=== PATIENT | male | born 1960 | race Caucasian/White ===

== ENCOUNTER 2017-02-25 14:25 | Emergency (ER) | payer OTHER ==
--- NOTE | 2017-02-25 14:58 | CPEKG ---
Heart Rate: 74 RR Interval: 811 P-R Interval: 144 QRSD Interval: 96 QT Interval: 396 QTC Interval: 440 P Heath: 63 QRS Heath: 16 T Wave Heath: 51 EKG Severity - NORMAL ECG - EKG Impression: SINUS RHYTHM Electronically Signed By: Nic Tovar 25-Feb-2017 22:59:16
[2017-02-25] MEDS ORDERED: NS 500 ML IV ONE (15:10)
[2017-02-25] MEDS ORDERED: FAMOTIDINE 20 MG/NACL 50 ML IV ONE (15:13)
[2017-02-25] MEDS ORDERED: ONDANSETRON 4 MG/2 ML VIAL IVP ONE (15:13)
--- NOTE | 2017-02-25 15:18 | EDPHY ---
H & P Time Seen by Provider: 02/25/17 15:00 HPI/ROS: HPI Stomach upset. 56-year-old male by private vehicle with his . This patient presents to the emergency department from the office of his primary care physician. This is Dr. Banerjee. He reports 2-3 weeks of what he describes as indigestion in abdominal discomfort with gas including burping and flatulence. He describes having vague abdominal discomfort, mostly in the mid and upper abdomen. Described as crampy and uncomfortable. He describes the discomfort as being under both ribs and sometimes radiating to the mid back. He reports that it has been on and off in intensity for the last 2-3 weeks but he has been feeling it constantly at some level for that time. He denies any chest pain. No shortness of breath. No urinary complaints. No fever. He reports this morning he had 1 episode of nonbilious and nonbloody vomiting. He reports his last meal was at 12 noon this stayed down. No diarrhea. No bloody or melenic stool. Last bowel movement was this morning. He denies any new supplements for medications. No change in diet. ROS: Constitutional: No fever, no chills. No weakness. Eyes: No discharge. No changes in vision. ENT: No sore throat. No nasal congestion or rhinorrhea. Respiratory: No cough. No shortness of breath. Cardiac: No chest pain, no palpitations. Gastrointestinal: As above. Genitourinary: No hematuria. No dysuria or increased frequency with urination. Musculoskeletal: No back pain. No neck pain. No myalgias or arthralgias. Skin: No rashes. Neurological: No headache. No focal weakness or altered sensation. Past medical history: He denies any significant past medical history. He is on no prescription medications. Social history: Chews tobacco. Drinks 2-3 alcoholic beverages per night. Here with his . Physical Exam: General Appearance: Alert, no distress. Moderately obese. This patient is responding to questions appropriately and in full sentences. This patient appears well-hydrated and well-nourished. Eyes: Pupils equal and round no pallor or injection. No lid edema, erythema or injection. Respiratory: There are no retractions, lungs are clear to auscultation with good air movement bilaterally. Cardiovascular: Regular rate and rhythm. No murmur. Gastrointestinal: Abdomen is soft with vague and mild tenderness on palpation involving the right upper quadrant, left lower quadrant and middle and right lower abdomen to a lesser extent, no masses, bowel sounds normal. No focal tenderness at McBurney's point. No Dooley sign. Neurological: Motor sensory function is grossly intact. Cranial nerves are normal. Gait is normal. Skin: Warm and dry, no rashes. Musculoskeletal: Neck is supple and nontender. Extremities are symmetrical. All joints range without pain or impingement. Psychiatric: No agitation. No depression. Database: EKG: EKG time is 2:56 p.m.; EKG shows a narrow complex normal sinus rhythm with a ventricular rate of 74. The DE, QRS, QT intervals are within normal limits. There are no ST-T wave changes indicative of ischemic or injury pattern. No evidence of right heart strain. Interpreted by me. Imaging: Right upper quadrant abdominal ultrasound: 5.5 cm renal mass on the right side. No associated hydronephrosis. Borderline enlarged liver. Gallbladder unremarkable. Common bile duct 5-6 mm. Otherwise normal. Results were discussed with staff radiologist Dr. José Manuel Vieira. CT of abdomen and pelvis with IV contrast: Significant for a likely renal cell carcinoma involving the right kidney 5.5 cm in diameter. It does not appear to invade the collection system or the vasculature of the kidney. It appears isolated. Results were discussed with staff radiologist Dr. Watson Adams. Procedures: Emergency department course: Vital signs reviewed and are normal. IV placed. He was placed on a monitor. EKG performed. He was started on IV normal saline with 500 cc to be given over the next hour. He was given 4 mg of IV Zofran and 20 mg of IV Pepcid. 4:40 p.m., patient re-evaluated. Resting comfortably at this time. Discussed results of ultrasound and identification of renal mass. Radiologist, Dr. Vieira, recommend CT of abdomen and pelvis with IV contrast as well as without contrast to further evaluate this mass. This was discussed with the patient. He consents to CT imaging. Will be sent shortly for the studies. 7:30 p.m., spoke with on-call oncologist Dr. Kelly. Case discussed in detail. Dr. Kelly will see this patient in his clinic tomorrow for further evaluation and management. 7:40 p.m., patient re-evaluated. Resting comfortably at this time. Denies any significant pain. Results of CT scan and diagnosis of likely renal cell carcinoma discussed with him and his . I discussed my conversation with Dr. Kelly. I discussed follow-up with Dr. Kelly tomorrow in Dr. Kelly clinic. As for his abdominal discomfort, flatulence, belching and acid reflux will put him on a proton pump inhibitor. I will also prescribe him a limited number of Vicodin with stool softeners for the next 2-3 days. The patient understands his follow-up. Return to emergency department precautions were thoroughly reviewed with him. All of his questions were answered. He was discharged in good condition. Differential Diagnosis: The differential diagnosis on this patient includes but is not limited to dyspepsia, food-borne illness, renal carcinoma. Acute coronary syndrome, cholecystitis, biliary colic, pancreatitis, cholangitis, aortic dissection, unlikely. This represents a partial list of diagnoses considered. These considerations are based on history, physical exam, past history, reassessment and diagnostic testing. Smoking Status: Current some day smoker Constitutional: Initial Vital Signs Temperature (C) 36.4 C 02/25/17 14:39 Heart Rate 78 02/25/17 14:39 Respiratory Rate 16 02/25/17 14:39 Blood Pressure 135/81 H 02/25/17 14:39 O2 Sat (%) 98 02/25/17 14:39 O2 Delivery Mode Room Air Allergies/Adverse Reactions: codeine Allergy (Verified 02/25/17 14:38) Home Medications: Medication Instructions Recorded Docusate Sodium [Colace 100 MG (*)] 100 mg PO TID #20 cap 02/25/17 Ondansetron Odt [Zofran Odt 4 mg 4 mg PO Q4PRN PRN #10 tab 02/25/17 (*)] Pantoprazole Sodium [Protonix] 40 mg PO DAILY #30 tab 02/25/17 Medical Decision Making - Data Points Laboratory Results: Laboratory Results 02/25/17 15:03 02/25/17 15:03 Medications Given: Discontinued Medications Hydrocodone Bitart/Acetaminophen ([place] 5/325mg Prepack#6) 1 btl TAKEHOME EDNOW ONE Stop: 02/25/17 19:44 Last Admin: 02/25/17 20:02 Dose: 1 btl Sodium Chloride (Ns) 500 mls @ 1,000 mls/hr IV EDNOW ONE PRN Reason: Protocol Stop: 02/25/17 15:39 Last Admin: 02/25/17 15:10 Dose: 500 mls Famotidine/Sodium Chloride (Pepcid 20 Mg (Premix)) 50 mls @ 200 mls/hr IV EDNOW ONE Stop: 02/25/17 15:27 Last Admin: 02/25/17 15:35 Dose: 50 mls Ondansetron HCl (Zofran) 4 mg IVP EDNOW ONE Stop: 02/25/17 15:14 Last Admin: 02/25/17 15:35 Dose: 4 mg Ondansetron HCl (Zofran Odt 4 Mg Prepack#2) 1 btl TAKEHOME EDNOW ONE Stop: 02/25/17 19:44 Last Admin: 02/25/17 20:02 Dose: 1 btl Departure - Departure Disposition: Home, Routine, Self-Care Clinical Impression: Dyspepsia, Renal cell carcinoma Condition: Good Instructions: Hydrocodone/Acetaminophen (By mouth), Ondansetron (By mouth), Indigestion (ED) Additional Instructions: Read and follow provided instructions. Follow-up with Dr. Kyle Kelly, oncologist, as discussed tomorrow in his clinic for further evaluation and ongoing management. He has your phone number and will call him tomorrow morning. If you do not hear from him tomorrow morning please call him for appointment time. He has your information and date. He will have access to all of our records here. Take medication as prescribed for indigestion. Return to the emergency department for worsening symptoms, worsening abdominal pain, vomiting, fever or other serious concerns. Referrals: Levi Banerjee DO [Primary Care Provider] - As per Instructions Flor Kelly MD [Medical Doctor] - As per Instructions Prescriptions: Docusate Sodium [Colace 100 MG (*)] 100 mg PO TID #20 cap Ondansetron Odt [Zofran Odt 4 mg (*)] 4 mg PO Q4PRN PRN #10 tab PRN Reason: For Nausea & Vomiting Pantoprazole Sodium [Protonix] 40 mg PO DAILY #30 tab
[2017-02-25 15:19] LABS: % IMMATURE GRANULYOCYTES 0.4 % (0.0-1.1); ABSOLUTE IMMATURE GRANULOCYTES 0.04 10^3/uL (0.00-0.10); ADD DIFF? NO; ADD MORPH? NO; ADD SCAN? NO; ATYPICAL LYMPHOCYTE FLAG 0 (0-99); FRAGMENT RBC FLAG 0 (0-99); HEMATOCRIT 47.9 % (40.0-51.0); HEMOGLOBIN 16.1 g/dL (13.7-17.5); LEFT SHIFT FLG 0 (0-99); LIPEMIA HEMOLYSIS FLAG 80 (0-99); MEAN CELL HEMOGLOBIN 30.3 pg (27.9-34.1); MEAN CELL HEMOGLOBIN CONCENTR. 33.6 g/dL (32.4-36.7); MEAN PLATELET VOLUME 10.7 fL (8.7-11.7); PLATELET CLUMPS FLAG 0 (0-99); PLATELET COUNT 227 10^3/uL (150-400); RED BLOOD CELL COUNT 5.32 10^6/uL (4.40-6.38); RED CELL DISTRIBUTION WIDTH 15.3 % (11.5-15.2)
[2017-02-25 15:27] LABS: INR 0.97 (0.83-1.16); PROTIME(PATIENT) 12.8 SEC (12.0-15.0)
[2017-02-25 15:28] LABS: APTT 24.6 SEC (23.0-38.0)
[2017-02-25 15:40] LABS: ALANINE AMINOTRANSFERASE 47 IU/L (21-72); ALBUMIN 4.2 g/dL (3.5-5.0); ALKALINE PHOSPHATASE 79 IU/L (38-126); ANION GAP 14 mEq/L (8-16); ASPARTATE AMINOTRANSFERASE 33 IU/L (17-59); BILIRUBIN,TOTAL 0.5 mg/dL (0.1-1.4); BILIRUBIN-CONJUGATED 0.4 mg/dL (0.0-0.5); BILIRUBIN-UNCONJUGATED 0.1 mg/dL (0.0-1.1); CALCIUM 10.1 mg/dL (8.5-10.4); CARBON DIOXIDE 24 mEq/l (22-31); CHLORIDE 104 mEq/L (97-110); CREATININE 0.9 mg/dL (0.7-1.3); GLOMERULAR FILTRATION RATE > 60; GLUCOSE 132 mg/dL (70-100); POTASSIUM 3.8 mEq/L (3.5-5.2); SODIUM 142 mEq/L (134-144); TOTAL PROTEIN 7.1 g/dL (6.3-8.2)
[2017-02-25 15:48] LABS: CK-MB INTERPRETATION NEGATIVE (NEGATIVE); CREATINE KINASE-MB FRACTION 2.37 ng/mL (0.00-3.19); TROPONIN I < 0.012 ng/mL (0.000-0.034)
[2017-02-25] MEDS ORDERED: IOPAMIDOL (ISOVUE-300) 100 ML BTL ONE ×2 (17:11→17:13)
[2017-02-25] MEDS ORDERED: HYDROCOD/APAP 5/325 PREPACK#6 BTL TAKEHOME ONE (19:43)
[2017-02-25] MEDS ORDERED: ONDANSETRON 4MG PREPACK#2 BTL TAKEHOME ONE (19:43)
[2017-02-25 20:05] VITALS: BP 128/81; PULSE 56; RESP 18; TEMP 97.9; O2SAT 96
== END 2017-02-25 20:04 | disposition home or self-care (01) ==
DX: R10.13 Epigastric pain (principal); C64.9 Malignant neoplasm of unspecified kidney, except renal pelvis; F17.220 Nicotine dependence, chewing tobacco, uncomplicated; E86.9 Volume depletion, unspecified
CPT/HCPCS: 96374; J2405; Q9967